=== PATIENT | male | born 1975 | race Two or more races ===

== ENCOUNTER 2017-10-12 08:28 | Outpatient (CLI) | payer OTHER | END 2017-10-12 08:29 | disposition home or self-care (01) | LOC: LAB 08:28 | DX: Z98.61 Coronary angioplasty status (principal); I25.10 Atherosclerotic heart disease of native coronary artery without angina pectoris; E11.9 Type 2 diabetes mellitus without complications; I10 Essential (primary) hypertension; E78.2 Mixed hyperlipidemia; D68.61 Antiphospholipid syndrome; D68.62 Lupus anticoagulant syndrome; D68.59 Other primary thrombophilia; E72.11 Homocystinuria; E72.12 Methylenetetrahydrofolate reductase deficiency; D68.51 Activated protein C resistance; D68.52 Prothrombin gene mutation; D50.8 Other iron deficiency anemias; D51.8 Other vitamin B12 deficiency anemias; D68.312 Antiphospholipid antibody with hemorrhagic disorder; D68.32 Hemorrhagic disorder due to extrinsic circulating anticoagulants; D68.4 Acquired coagulation factor deficiency; D68.311 Acquired hemophilia; D68.0 Von Willebrand disease; D68.69 Other thrombophilia ==

== ENCOUNTER 2018-02-22 09:05 | Outpatient (CLI) | payer OTHER | END 2018-02-22 09:23 | disposition home or self-care (01) | LOC: LAB 09:05 | DX: Z98.61 Coronary angioplasty status (principal); I25.10 Atherosclerotic heart disease of native coronary artery without angina pectoris; E11.9 Type 2 diabetes mellitus without complications; D68.61 Antiphospholipid syndrome; D68.62 Lupus anticoagulant syndrome; D68.69 Other thrombophilia; E72.11 Homocystinuria; D68.59 Other primary thrombophilia; E78.2 Mixed hyperlipidemia; I10 Essential (primary) hypertension; D50.8 Other iron deficiency anemias; D51.8 Other vitamin B12 deficiency anemias; D51.1 Vitamin B12 deficiency anemia due to selective vitamin B12 malabsorption with proteinuria; D51.0 Vitamin B12 deficiency anemia due to intrinsic factor deficiency; E03.8 Other specified hypothyroidism ==

== ENCOUNTER 2019-05-29 09:07 | Outpatient (CLI) | payer OTHER | END 2019-05-29 15:00 | disposition home or self-care (01) | LOC: LAB 09:07 | DX: D68.69 Other thrombophilia (principal) ==